=== PATIENT | male | born 1985 | race Caucasian/White ===

== ENCOUNTER 2024-06-20 01:10 | Emergency (ER) | payer OTHER, SELFPAY ==
[2024-06-20] VITALS (7 sets, daily range): BP systolic 101–114; BP diastolic 54–78; PULSE 70–94; RESP 12–20; TEMP 36.7; O2SAT 91–95
--- NOTE | ~2024-06-20 | CT_ITS ---
Non-contrast Head CT History: Seizure Technique: Axial non-contrast imaging of the brain was performed. Dose reduction technique was used on this scan by utilizing automated exposure control and iterative reconstruction technique. The dose -length product (DLP) was 681.00 mGy-cm. Findings: There is no evidence of intracranial hemorrhage, mass lesion, or acute infarct. There is p ostsurgical encephalomalacia of the anterior left temporal lobe, with overlying left temporal craniot eliz. The ventricles and subarachnoid spaces are normal in size. The calvarium otherwise appears norm al. The visualized paranasal sinuses and mastoid air cells are clear. Impression: No acute abnormality seen. Postsurgical encephalomalacia at the anterior left temporal lobe with overlying left temporal craniot eliz. Reviewed, dictated and finalized at [facility]. COST ESTIMATOR Impression: No acute abnormality seen. Postsurgical encephalomalacia at the anterior left temporal lobe with overlying left temporal craniotomy.
--- NOTE | 2024-06-20 01:21 | PC.NURSE ---
0118 Patient states during assessment and placing on monitors and starting sz precautions, states I think I am going to have another one. Patient then looked up at the ceiling light, his head starts to shake and patient starts to stiffen and get ridig then loosens his muscles, patient VS remained stable. Patient did have pupilary changes but remained 94% on RA during event, with HR from 94-110bpm. ERP called to room and patient positical and resumes a/ox4. Patient states he is at [facility] for SI and therapy, but I normally live at [facility]. Patient denies any SI/HI at this time.
[2024-06-20 02:35] LABS: Basophils Absolute Auto 0.1 K/mm3 (0.0-0.1); Basophils Percent Auto 0.8 % (0.2-1.2); Eosinophils Absolute Auto 0.2 K/mm3 (0-0.3); Eosinophils Percent Auto 2.7 % (0-4.4); Hematocrit 41.2 % (42.0-52.0); Hemoglobin 14.8 g/dL (14.0-18.0); Immature Granulocyte Absolute 0.04 K/mm3 (0.00-0.031); Immature Granulocyte Percent A 0.7 % (0-0.5); Lymphocytes Absolute Auto 1.46 K/mm3 (0.9-3.2); Lymphocytes Percent Auto 24.8 % (18.3-44.2); Mean Corpuscular HGB Conc 35.9 g/dl (32-36); Mean Corpuscular Hemoglobin 26.9 pg (26-34); Mean Corpuscular Volume 74.8 fl (80-100); Mean Platelet Volume 9.6 fl (7.4-10.4); Monocytes Absolute Auto 0.5 K/mm3 (0.1-0.6); Neutrophils Absolute Auto 3.7 K/mm3 (1.3-6.7); Platelet Count Result 194 k/mm3 (150-375); Red Blood Count 5.51 M/mm3 (4.6-6.20); Red Cell Distribution Width 13.9 % (11.5-14.5); White Blood Count 5.9 K/mm3 (4.5-10.0)
[2024-06-20] MEDS: levETIRAcetam 1000MG/NACL100ML 1,000 MG/100 ML BAG 400 MG IVPB (02:39)
[2024-06-20 02:55] LABS: Alanine Aminotransferase 19 U/L (6-50); Albumin Level 4.1 g/dL (3.5-5.1); Alkaline Phosphatase 70 U/L (38-126); Anion Gap 8 mmol/L (4-12); Aspartate Amino Transferase 20 U/L (17-59); Bilirubin,Total 0.3 mg/dL (0.2-1.3); Blood Urea Nitrogen 13 mg/dL (9-20); Calcium 9.3 mg/dL (8.4-10.2); Carbon Dioxide 21 mmol/L (22-30); Chloride 105 mmol/L (98-107); Estimated CRCL calculation 121 ml/min; Estimated Glomerular Filt Rate > 60; Glucose 114 mg/dL (65-110); Magnesium 1.7 mg/dL (1.6-2.3); Potassium 3.5 mmol/L (3.4-5.0); Sodium 134 mmol/L (137-145)
[2024-06-20 02:56] LABS: Lactic Acid Reflex 1.9 mmol/L (0.7-2.0)
[2024-06-20 03:11] LABS: Influenza A QL RT-PCR Negative (Negative); Influenza B QL RT-PCR Negative (Negative); RSV RNA, RT-PCR Negative (Negative); SARS-CoV-2 RNA PCR Negative (Negative)
--- NOTE | 2024-06-20 03:31 | ED_ITS ---
HPI - General Adult General Chief complaint: Seizure Stated complaint: SZ WITH HISTORY OF SZ DISORDER Time Seen by Provider: 06/20/24 01:23 History of Present Illness HPI narrative: Patient 39-year-old gentleman presents emergency department with chief complaint of seizure. The patient has prior history of seizure disorder and is currently at a local nursing facility the patient had 2 seizures this evening lasted just a few seconds the patient reports that he is not suicidal but does have history of chronic suicidality. The patient reports no trauma reports that he had no bowel or bladder incontinence. Review of Systems 2 Review of Systems: A 10 system review of systems was completed on the patient and is negative except for what is stated in the HPI. Nursing and ancillary documentation was reviewed. Exam 2 Narrative: GENERAL: Well-appearing, well-nourished, and in no acute distress. HEAD: Normocephalic, atraumatic. EYES: PERRLA and EOMI. ENT: Nares clear, no rhinorrhea or epistaxis. Mucous membranes moist. NECK: Supple. CHEST: Clear to auscultation. No respiratory distress. HEART: Regular rate and rhythm. No murmur heard. Normal peripheral pulses. ABDOMEN: Soft, nontender, nondistended, normal active bowel sounds. EXTREMITIES: Normal range of motion. No edema. SKIN: Warm, dry, no rash. NEURO: No focal deficits. Alert and oriented x3. PSYCH: Normal mood and affect. Course Vital Signs Vital signs: Vital Signs Temperature 36.7 C 06/20/24 01:10 Pulse Rate 94 06/20/24 01:10 Respiratory Rate 20 06/20/24 01:10 Blood Pressure 110/78 06/20/24 01:10 Pulse Oximetry 94 06/20/24 01:10 Oxygen Delivery Room Air 06/20/24 01:10 Temperature 36.7 C 06/20/24 01:10 Pulse Rate 70 06/20/24 03:01 Respiratory Rate 12 06/20/24 03:01 Blood Pressure 113/61 06/20/24 03:01 Pulse Oximetry 86 L 06/20/24 03:01 Oxygen Delivery Room Air 06/20/24 01:19 Medical Decision Making [facility] Narrative Medical decision making narrative: Differential diagnosis includes breakthrough seizure, rule out epileptiform seizures, electrolyte abnormality Laboratory studies were obtained on the patient showed a normal CBC CMP was within normal limits lactate was 1.9 COVID flu and RSV were negative CT head was negative Patient was given a dose of Ativan in the emergency department and also was given a dose of Keppra. Plan will be to discharge the patient home to follow-up with his neurologist Vital Signs Vital Signs: Vital Signs Temperature 36.7 C 06/20/24 01:10 Pulse Rate 94 06/20/24 01:10 Respiratory Rate 20 06/20/24 01:10 Blood Pressure 110/78 06/20/24 01:10 Pulse Oximetry 94 06/20/24 01:10 Oxygen Delivery Room Air 06/20/24 01:10 Temperature 36.7 C 06/20/24 01:10 Pulse Rate 70 06/20/24 03:01 Respiratory Rate 12 06/20/24 03:01 Blood Pressure 113/61 06/20/24 03:01 Pulse Oximetry 86 L 06/20/24 03:01 Oxygen Delivery Room Air 06/20/24 01:19 Lab Data 06/20/24 02:29 06/20/24 02:29 Labs: Lab Results 06/20/24 Range/Units 02:29 WBC 5.9 (4.5-10.0) K/mm3 RBC 5.51 (4.6-6.20) M/mm3 Hgb 14.8 (14.0-18.0) g/dL Hct 41.2 L (42.0-52.0) % MCV 74.8 L (80-100) fl MCH 26.9 (26-34) pg MCHC 35.9 (32-36) g/dl RDW 13.9 (11.5-14.5) % Plt Count 194 (150-375) k/mm3 MPV 9.6 (7.4-10.4) fl Immature Gran % (Auto) 0.7 H (0-0.5) % Neut % (Auto) 62.0 (45.5-73.1) % Lymph % (Auto) 24.8 (18.3-44.2) % Sibley % (Auto) 9.0 H (2.6-8.5) % Eos % (Auto) 2.7 (0-4.4) % Baso % (Auto) 0.8 (0.2-1.2) % Lymph # (Auto) 1.46 (0.9-3.2) K/mm3 S[place]y # (Auto) 0.5 (0.1-0.6) K/mm3 Eos # (Auto) 0.2 (0-0.3) K/mm3 Baso # (Auto) 0.1 (0.0-0.1) K/mm3 Abs Immat Gran (auto) 0.04 H (0.00-0.031) K/mm3 Absolute Neuts (auto) 3.7 (1.3-6.7) K/mm3 Absolute Nucleated RBC 0.000 (0.0-0.012) K/mm3 Nucleated RBC % 0.0 (0.0-0.2) % Sodium 134 L (137-145) mmol/L Potassium 3.5 (3.4-5.0) mmol/L Chloride 105 (98-107) mmol/L Carbon Dioxide 21 L (22-30) mmol/L Anion Gap 8 (4-12) mmol/L BUN 13 (9-20) mg/dL Creatinine 0.80 (0.7-1.3) mg/dL Estim Creat Clear Calc 121 ml/min Estimated GFR > 60 (59 - ) Glucose 114 H (65-110) mg/dL Lactic Acid 1.9 (0.7-2.0) mmol/L Calcium 9.3 (8.4-10.2) mg/dL Magnesium 1.7 (1.6-2.3) mg/dL Total Bilirubin 0.3 (0.2-1.3) mg/dL AST 20 (17-59) U/L ALT 19 (6-50) U/L Alkaline Phosphatase 70 (38-126) U/L Total Protein 7.0 (6.3-8.2) g/dL Albumin 4.1 (3.5-5.1) g/dL Influenza A (RT-PCR) Negative (Negative) Influenza B (RT-PCR) Negative (Negative) RSV (RT-PCR) Negative (Negative) SARS-CoV-2 RNA (RT-PCR) Negative (Negative) Discharge Plan Discharge Patient Language: Lao Follow-up/Referrals: Oc Wesley MD [Primary Care Provider] -
--- NOTE | 2024-06-20 09:09 | PC.NURSE ---
Pt's family and alf not able to provide transportation.
--- OUTSIDE RECORDS SUMMARY | 2024-06-26 14:01 | XMS_ITS | Continuity of Care Document ---
Author Organization [facility] Address [address] [place] [address] Phone Care Team Providers Care Jet Aircraft Servicer Name Role Phone Bolivar Almazan PA-C Unavailable Unavailable Allergies, Adverse Reactions, Alerts Substance Reaction Status Criticality Penicillins Active No Information Medications Medication Instructions Dosage Effective Dates (start - stop) Status Comments HYDROCODONE-ACETAMINOP HEN (unknown strength) Not Available - Active Procedures Procedure Date Office/outpatient visit,est, mod 2015 Office/outpatient visit,[facility], [facility] 2015 Inj/Asp Inter Joint/Bursa (AC, Wrist, El bow, Ankle, Olecr) Decadron 1 Mg Office/outpatient visit,[facility], [facility] 2015 Elbow Xray 2 Views Office/outpatient visit,[facility], [facility] 2015 Advance Directives Directive Yes / No Effective Date File Name No Information Encounters Encounter Description Practice Location Reason(s) For Visit Diagnoses Date Provider Providers Copied on Encounter Office/outpat ient visit,est, [facility], [address] [place] [address], [id number], tel:[phone] [facility] right elbow (chief complaint) Loose body in right elbowPain in right elbowOther enthesopathies, not elsewhere classified 0 6 Tha Lutz. [address] [place] [address], [id number] , [place]. tel:[phone] Office/outpat ient visit,[facility], [facility], [address] [place] [address], [id number], tel:[phone] [facility] right elbow (chief complaint) Loose body in right elbowPain in right elbowOther enthesopathies, not elsewhere classified 6 Tha Lutz. [address] [place], [place], [id number] , . tel:[phone] Office/outpat ient visit,est, mod [facility], [address] [place], [place], [id number], tel:[phone] [facility] rt-Elbow (chief complaint) Triceps tendonitisPain in right elbow 6 Abner Vargas. [address] [place], [place], [id number] , . tel:[phone] Office/outpat ient visit,new, [facility], [address] [place], [place], [id number], tel:[phone] [facility] right elbow pain (chief complaint) Pain in right elbowLoose body in right elbow 6 Stephane Suárez. [address] [place], [place], [id number] , . tel:[phone] Family History Family Member Type Diagnosis Age At Onset No Information Payers Payer name Insurance type Covered constitution party ID Authoriza tion(s) No Information Social History Type Description Quantity Date Captured Comments Alcohol Use Details Unknown Caffeine Use Details Unknown Tobacco Use Status No Information Smoking Status No Information Sex Male Vital Signs Date / Time: Height Weight BMI Pulse Rate Blood Pressure Temperature Respiratory Rate Body Surface Area Head Circumference Head Circ. Percentile Wt./[place]. Percentile BMI percentile Pulse Ox Inhaled Ox 4:08 PM 67.00 in 74.843 kg (165.00 lbs) 25.8 4 kg/m eter (2) 1.88 meter(2) Chief Complaint And Reason For Visit From encounter dated '03/24/2016 13:10'. right elbow (chief complaint) Reason For Referral Reason For Referral No Information Plan Of Treatment Date Type Action Status Goal Tobacco cessation counseling completed Future Order: Radiology Order MR Maciej Upper Ext Any Joint W/O Contrast ([id number]), Ordered on: Ordered Future Order: Radiology Order Devaughn goncalves Xray 2 Views ([id number]), Ordered on: Ordered History Of Present Illness Encounter Date Complaint History Of Prese nt Illness right elbow right elbow rt-Elbow right elbow pain Mr Joshi is a [age] year old male who complains of right elbow pain. He presents with pain on the right side. He states that the symptoms have been chronic non-traumatic. The pain is described as sharp and burning. The symptoms occur intermittently. The symptoms are aggravated by daily activities. In addition to right elbow pain the patient is also experiencing loose body . Mich admits he noticed the pain in October 2013. He had an operation to the right elbow to remove spurs previously. He is a construction electrician. Functional Status Date Functional Assessmen t No Information Instructions Date Instruction Additional Infor mation The working diagnosi s and discharge plan was discussed in detail with Mich. I explained his XR results. I recommended he have a right elbow arthroscopy. We will refer him to Dr. Essence Marc or Dr. MARZENA Levine. We will schedule a follow up appointment as needed. All questions and concerns were addressed; pt understands and agrees with plan. Related to Loose body in right elbow Assessments Type Assessment Date assessment Loose body in right elbow assessment Pain in right elbow assessment Other enthesopathies, not elsewh ere classified Patient Care Teams Name Effective Dates (start - stop) Status Members No Information
== END 2024-06-20 10:40 ==
PROVIDERS: Emergency Provider Emergency Medicine; PCP Hospitalist
DX: G40.909 Epilepsy, unspecified, not intractable, without status epilepticus (principal); Z11.52 Encounter for screening for COVID-19
CPT/HCPCS: 36415; 70450; 80053; 83605; 83735; 85025; 87637; 96365; 96375; 99284; J1953

== ENCOUNTER 2024-08-24 20:09 | Emergency (ER) | payer OTHER, SELFPAY ==
--- NOTE | ~2024-08-24 | CT_ITS ---
CT abdomen pelvis w con Ordering provider: Kaleb Velasco PA-C History: 39 years Male with . epigastic pain . Comparison: None. Technique: CT abdomen and pelvis with IV and without oral contrast. Automated exposure control and it erative reconstruction technique were employed. The dose-length product was 1185.85 mGy-cm. 100 mL Om nipaque 350 was given IV. Findings: VISUALIZED LOWER CHEST: Dependent atelectatic changes. UPPER ABDOMINAL ORGANS: Liver: Mild fat infiltration. Hepatomegaly. Gallbladder: Normal. Spleen: Normal. Stomach/duodenum: Normal. Pancreas: Normal. Adrenals: Normal. Kidneys: Tiny cyst in the left kidney lower pole. PELVIC ORGANS: The bladder is normal. BOWEL AND MESENTERY: Colon: No evidence of diverticulitis. Normal appendix. Small Bowel: Normal. No obstruction. Peritoneum/mesentery: No free air or free fluid. No mesenteric lymphadenopathy. Small mesenteric lymp h nodes. RETROPERITONEUM: Normal aorta. No retroperitoneal lymphadenopathy. MUSCULOSKELETAL: Superficial soft tissues: Bilateral fat containing inguinal hernias otherwise, The superficial soft t issues are normal. Bones: Spondylolysis at the level of L5-S1 otherwise, the Normal spine. IMPRESSION: 1. Hepatomegaly with fat infiltration. 2. No evidence of appendicitis, diverticulitis or intestinal obstruction. 3. Bilateral fat containing inguinal hernias. Reviewed, dictated and finalized at location A.
[2024-08-24 20:18] VITALS: BP 135/83; PULSE 96; RESP 20; TEMP 36.7; O2SAT 96
--- NOTE | 2024-08-24 20:20 | ECG_ITS ---
Test Date: 2024-08-24 20:29:20 Measurements Intervals [place] Rate: 95 P: 45 VA: 170 QRS: 71 QRSD: 109 T: 20 QT: 339 QTc: 427 Interpretive Statements SINUS RHYTHM NONSPECIFIC T-WAVE ABNORMALITY No previous ECG available for comparison Electronically Signed On 08-25-2024 14:02:18 CDT by Konstantin Abrams M.D.
--- NOTE | 2024-08-24 20:22 | ED_ITS ---
HPI - Abdominal Pain General Chief Complaint: Abdominal Pain Stated Complaint: Abd pain, LUQ TTP Time Seen by Provider: 08/24/24 20:20 Source: patient Mode of arrival: ambulatory Limitations: no limitations History of Present Illness HPI narrative: This is a 39-year-old male with PMH of GERD, brain cancer who presents to the ED via EMS from a senior living for chief complaint of abdominal pain beginning today. Reports pain is in the epigastrium. He is currently at [facility] for psychiatric care as well as care for his brain cancer with recent brain surgery. States that he takes GERD medications daily but the facility has not been able to give him this medication in the last 2 days. He does endorse a burning pain whenever he tries to eat. He feels that this is his chronic GERD flaring up. Denies nausea, vomiting, diarrhea, GI bleeding symptoms, fevers, chills, back pain, numbness, weakness. Related Data Allergies Allergy/AdvReac Type Severity Reaction Status Date / Time amoxicillin AdvReac Severe Swelling Verified 08/24/24 20:27 Penicillins AdvReac Severe Swelling Verified 08/24/24 20:27 Review of Systems 2 Review of Systems: All systems as dictated in HPI Exam 2 Narrative: GENERAL: Well-appearing, well-nourished, and in no acute distress. HEAD: Normocephalic, atraumatic. EYES: PERRLA and EOMI. ENT: Nares clear, no rhinorrhea or epistaxis. Mucous membranes moist. Oropharynx without tonsillar hypertrophy exudate or other lesions. NECK: Supple. No adenopathy or masses. CHEST: No respiratory distress. Clear to auscultation. No wheezes rales or rhonchi HEART: Regular rate and rhythm. No murmur heard. Normal peripheral pulses. ABDOMEN: Soft, grossly nontender, nondistended, normal active bowel sounds. MSK: Normal range of motion. No edema. SKIN: Warm, dry, no rash. NEURO: Alert and oriented x4. No focal deficits. PSYCH: Normal mood and affect. Course Reevaluation(s) Reevaluation #1: Patient is feeling much improved and feels ready to go home. I advised that his CT scan was reassuring today. I discussed that I think his symptoms are mainly gastritis related. He is now explaining that he eats almost exclusively spicy and acidic foods. I advised that he quit eating these foods to avoid recent pain like this. Date: 08/24/24 Time: 22:38 Vital Signs Vital signs: Vital Signs Temperature 98.0 F 08/24/24 20:18 Pulse Rate 96 08/24/24 20:18 Respiratory Rate 20 08/24/24 20:18 Blood Pressure 135/83 08/24/24 20:18 Pulse Oximetry 96 08/24/24 20:18 Oxygen Delivery Room Air 08/24/24 20:18 Temperature 98.0 F 08/24/24 20:18 Pulse Rate 87 08/25/24 00:27 Respiratory Rate 15 08/25/24 00:27 Blood Pressure 128/87 08/25/24 00:27 Pulse Oximetry 96 08/25/24 00:27 Oxygen Delivery Room Air 08/24/24 20:18 MDM - Abdominal Pain MDM Narrative Medical decision making narrative: This is a 31-year-old male who presents to the ED for chief complaint of epigastric pain after being out of his great medications for the past 2 days. He eats nothing but spicy food. Vitals are normal. Exam remarkable for the above. Lab work shows normal white count on CBC. Lipase is normal. CMP unremarkable. Attempted symptomatic control with Pepcid, Zofran, GI cocktail. He was still having significant pain so CT abdomen was ordered. He was also given Dilaudid. CT abdomen pelvis with IV contrast: IMPRESSION: 1. Hepatomegaly with fat infiltration. 2. No evidence of appendicitis, diverticulitis or intestinal obstruction. 3. Bilateral fat containing inguinal hernias. On re-evaluation patient is feeling much improved. Presentation consistent with gastritis. Patient will be discharged in stable condition. Supportive measures discussed and return precautions given. Patient is understanding and agreeable with plan for discharge with PCP follow-up. Lab Data 08/24/24 20:28 08/24/24 20:28 Labs: Lab Results 08/24/24 Range/Units 20:28 WBC 4.9 (4.5-10.0) K/mm3 RBC 5.69 (4.6-6.20) M/mm3 Hgb 15.5 (14.0-18.0) g/dL Hct 44.0 (42.0-52.0) % MCV 77.3 L (80-100) fl MCH 27.2 (26-34) pg MCHC 35.2 (32-36) g/dl RDW 15.0 H (11.5-14.5) % Plt Count 240 (150-375) k/mm3 MPV 9.9 (7.4-10.4) fl Immature Gran % (Auto) 0.4 (0-0.5) % Neut % (Auto) 50.3 (45.5-73.1) % Lymph % (Auto) 37.1 (18.3-44.2) % [place] % (Auto) 9.8 H (2.6-8.5) % Eos % (Auto) 1.8 (0-4.4) % Baso % (Auto) 0.6 (0.2-1.2) % Lymph # (Auto) 1.82 (0.9-3.2) K/mm3 [place] # (Auto) 0.5 (0.1-0.6) K/mm3 Eos # (Auto) 0.1 (0-0.3) K/mm3 Baso # (Auto) 0.0 (0.0-0.1) K/mm3 Abs Immat Gran (auto) 0.02 (0.00-0.031) K/mm3 Absolute Neuts (auto) 2.5 (1.3-6.7) K/mm3 Absolute Nucleated RBC 0.000 (0.0-0.012) K/mm3 Nucleated RBC % 0.0 (0.0-0.2) % Sodium 141 (137-145) mmol/L Potassium 3.1 L (3.4-5.0) mmol/L Chloride 103 (98-107) mmol/L Carbon Dioxide 23 (22-30) mmol/L Anion Gap 15 H (4-12) mmol/L BUN 11 (9-20) mg/dL Creatinine 0.90 (0.7-1.3) mg/dL Estim Creat Clear Calc Not Reportable Estimated GFR > 60 (59 - ) Glucose 98 (65-110) mg/dL Calcium 9.9 (8.4-10.2) mg/dL Total Bilirubin 0.4 (0.2-1.3) mg/dL AST 27 (17-59) U/L ALT 24 (6-50) U/L Alkaline Phosphatase 68 (38-126) U/L Total Protein 8.0 (6.3-8.2) g/dL Albumin 5.0 (3.5-5.1) g/dL Lipase 115 (23-300) U/L Urine Color Yellow (Yellow) Urine Appearance Clear (Clear) Urine pH 5.5 (5.0-9.0) Ur Specific [place] 1.009 (1.001-1.035) Urine Protein Negative (Negative) mg/dL Urine Glucose (UA) Negative (Negative) mg/dL Urine Ketones Negative (Negative) mg/dL Ur Blood (Man) Negative (Negative) Urine Nitrate Negative (Negative) Urine Bilirubin Negative (Negative) Urine Urobilinogen 0.2 (<2.0) mg/dL Leukocyte Esterase Rfl Negative (Negative) SANDHYA/UL Imaging Data Radiologist's impression: ITS Impressions Abdomen/Pelvis CT 08/24/24 22:02 IMPRESSION: 1. Hepatomegaly with fat infiltration. 2. No evidence of appendicitis, diverticulitis or intestinal obstruction. 3. Bilateral fat containing inguinal hernias. Discharge Plan Discharge Clinical Impression: Gastritis Patient Disposition: Home, Self-Care Condition: Stable Instructions: Antibiotic Form Additional Instructions: Exam and imaging today are reassuring overall. Please take your normal medications for GERD and avoid any spicy or acidic foods. If you have any new or worsening symptoms please return to the ER for further evaluation. Patient Language: Czech Follow-up/Referrals: Oc Wesley MD [Primary Care Provider] - Time of Disposition: 22:39
--- OUTSIDE RECORDS SUMMARY | 2024-08-24 20:33 | XMS_ITS | Continuity of Care Document ---
Author Organization [facility] Address [address] [place] [address] Phone Care Team Providers Care Motor And Chassis Inspector Name Role Phone Bolivar Almazan PA-C Unavailable Unavailable Allergies, Adverse Reactions, Alerts Substance Reaction Status Criticality Penicillins Active No Information Medications Medication Instructions Dosage Effective Dates (start - stop) Status Comments HYDROCODONE-ACETAMINOP HEN (unknown strength) Not Available - Active Procedures Procedure Date Office/outpatient visit,est, mod 2015 Office/outpatient visit,[facility], [facility] 2015 Inj/Asp Inter Joint/Bursa (AC, Wrist, El bow, Ankle, Olecr) Decadron 1 Mg Office/outpatient visit,[facility], [facility] 2015 Elbow Xray 2 Views Office/outpatient visit,[facility], [facility] 2015 Advance Directives Directive Yes / No Effective Date File Name No Information Encounters Encounter Description Practice Location Reason(s) For Visit Diagnoses Date Provider Providers Copied on Encounter Office/outpat ient visit,est, [facility], [address] [place] [address], [id number], tel:[phone] [facility] right elbow (chief complaint) Loose body in right elbowPain in right elbowOther enthesopathies, not elsewhere classified 0 6 Tha Lutz. [address] [place] [address], [id number] , [place]. tel:[phone] Office/outpat ient visit,[facility], [facility], [address] [place] [address], [id number], tel:[phone] [facility] right elbow (chief complaint) Loose body in right elbowPain in right elbowOther enthesopathies, not elsewhere classified 6 Tha Lutz. [address] [place], [place], [id number] , . tel:[phone] Office/outpat ient visit,est, mod [facility], [address] [place], [place], [id number], tel:[phone] [facility] rt-Elbow (chief complaint) Triceps tendonitisPain in right elbow 6 Abner Vargas. [address] [place], [place], [id number] , . tel:[phone] Office/outpat ient visit,new, [facility], [address] [place], [place], [id number], tel:[phone] [facility] right elbow pain (chief complaint) Pain in right elbowLoose body in right elbow 6 Stephane Suárez. [address] [place], [place], [id number] , . tel:[phone] Family History Family Member Type Diagnosis Age [...] Maciej Upper Ext Any Joint W/O Contrast ([id number]), Ordered on: Ordered Future Order: Radiology Order Devaughn goncalves Xray 2 Views ([id number]), Ordered on: Ordered History Of Present Illness [...] remove spurs previously. He is a construction supervisor. Functional Status Date Functional Assessmen t No [...]
[2024-08-24 20:40] LABS: Basophils Percent Auto 0.6 % (0.2-1.2); Eosinophils Absolute Auto 0.1 K/mm3 (0-0.3); Eosinophils Percent Auto 1.8 % (0-4.4); Hemoglobin 15.5 g/dL (14.0-18.0); Immature Granulocyte Absolute 0.02 K/mm3 (0.00-0.031); Immature Granulocyte Percent A 0.4 % (0-0.5); Lymphocytes Absolute Auto 1.82 K/mm3 (0.9-3.2); Lymphocytes Percent Auto 37.1 % (18.3-44.2); Mean Corpuscular HGB Conc 35.2 g/dl (32-36); Mean Corpuscular Hemoglobin 27.2 pg (26-34); Mean Corpuscular Volume 77.3 fl (80-100); Mean Platelet Volume 9.9 fl (7.4-10.4); Monocytes Absolute Auto 0.5 K/mm3 (0.1-0.6); Monocytes Percent Auto 9.8 % (2.6-8.5); Neutrophils Absolute Auto 2.5 K/mm3 (1.3-6.7); Neutrophils Percent Auto 50.3 % (45.5-73.1); Platelet Count Result 240 k/mm3 (150-375); Red Blood Count 5.69 M/mm3 (4.6-6.20); White Blood Count 4.9 K/mm3 (4.5-10.0)
[2024-08-24 20:42] LABS: Add Urine Microscopic? NO; Appearance Urine Clear (Clear); Bilirubin Urine Negative (Negative); Blood Urine Negative (Negative); Color Urine Yellow (Yellow); Glucose Urine UA Negative (Negative); Ketones Urine Negative (Negative); Leukocyte Esterase Ur Negative LEU/UL (Negative); Nitrate Urine Negative (Negative); Protein Urine Negative (Negative); Specific Grav Ur 1.009 (1.001-1.035); Urobilinogen Urine 0.2 mg/dL (<2.0); pH Urine 5.5 (5.0-9.0)
[2024-08-24] MEDS: ONDANSETRON INJ 4 MG/2 ML VIAL IV PUSH (20:48)
[2024-08-24] MEDS: HYDROmorphone HCL INJ (*CRX) 1 MG/ML SYR 0.5 MG IV PUSH ×2 (20:48→22:08)
[2024-08-24 20:50] LABS: Alanine Aminotransferase 24 U/L (6-50); Alkaline Phosphatase 68 U/L (38-126); Anion Gap 15 mmol/L (4-12); Aspartate Amino Transferase 27 U/L (17-59); Bilirubin,Total 0.4 mg/dL (0.2-1.3); Blood Urea Nitrogen 11 mg/dL (9-20); Calcium 9.9 mg/dL (8.4-10.2); Carbon Dioxide 23 mmol/L (22-30); Chloride 103 mmol/L (98-107); Estimated Glomerular Filt Rate > 60; Glucose 98 mg/dL (65-110); Lipase 115 U/L (23-300); Potassium 3.1 mmol/L (3.4-5.0); Sodium 141 mmol/L (137-145)
[2024-08-24] MEDS: FAMOTIDINE 20 MG/2 ML VIAL IV PUSH (21:05)
[2024-08-24] MEDS: BELLADONNA ALK/PHENOB ELIX 10 ML, MAG HYDROX/ALUMINUM HYD/SIMETH 30 ML, LIDOCAINE 2% VI... PO (21:08)
[2024-08-24 22:09] VITALS: BP 123/77; PULSE 91; RESP 16; O2SAT 95
[2024-08-24] MEDS: SODIUM CHLORIDE 0.9% IV 1,000 ML 999 ML IV CONT (22:09)
--- NOTE | 2024-08-24 23:08 | PC.NURSE ---
Reported attempted to Geoff with no reply.
--- NOTE | 2024-08-24 23:40 | PC.NURSE ---
Called bianca to give report on pt, no answer. Left a voice message with callback number.
[2024-08-25 00:27] VITALS: BP 128/87; PULSE 87; RESP 15; O2SAT 96
== END 2024-08-25 01:45 ==
PROVIDERS: Student in an Organized Health Care Education/Training Program; Emergency Provider Physician Assistant; PCP Hospitalist
DX: K29.70 Gastritis, unspecified, without bleeding (principal); C71.9 Malignant neoplasm of brain, unspecified; K21.9 Gastro-esophageal reflux disease without esophagitis; K76.0 Fatty (change of) liver, not elsewhere classified; K40.90 Unilateral inguinal hernia, without obstruction or gangrene, not specified as recurrent; R94.31 Abnormal electrocardiogram [ECG] [EKG]
CPT/HCPCS: 36415; 74177; 80053; 81003; 83690; 85025; 93005; 96361; 96374; 96375; 99284; A9270; J1171; J2405; J7030; Q9967